=== PATIENT | female | born 1955 | race Caucasian/White ===

== ENCOUNTER 2019-08-29 08:12 | Emergency (ER) | payer BC, SELFPAY ==
--- NOTE | 2019-08-29 08:13 | ED.GENADUL_ITS ---
Discharge Plan Disposition Patient Disposition: HOME Condition: Good Discharge Details Chief Complaint: Allergic Clinical Impression: Allergic reaction Primary Care Provider: Dee Thacker ED Provider: Lou Cueto Home Meds and New Rx's Prescriptions: New prednisone 50 mg tablet 50 mg PO DAILY 4 Days Qty: 4 RF: 0 Discharge Instructions Instructions: General Allergic Reaction (ED) Additional Instructions: Encourage water intake. You may continue with Benadryl to help with swelling with reaction. The localized swelling is likely secondary to you sleeping on t he left side after having her reaction yesterday. If symptoms do not begin to improve as discussed, please begin the prednisone ordered. Try to take this in the morning as it can disturb sleep. If you develop difficulty breathing, wheezing, shortness of breath, pain, fevers, spreading of the area affected or other new/worsening symptom please seek care urgently once again. Otherwise, please keep your upcoming appointment with your primary care. Referrals: Dee Thacker [Primary Care Provider] - Medical Decision Making Patient is a pleasant 64-year-old female presenting today with concern for allergic reaction. She reports that yesterday she had been out weed whacking. When she came inside she noted both of her cheeks to be flushed and slightly puffy. She reports that she then went to a graduation where she wore a mask t hat seemed to further irritate her skin. States she did take a Benadryl last night prior to bed. She reports this morning when she woke up she noted focal swelling on the left cheek. She does report that she sleeps on the left side. She denies any difficulty breathing, shortness of breath, wheezing. Denies any fevers or chills. No pain in the face. No discharge. No visual changes. On exam, patient appears nontoxic. Her eyes appear unaffected. She does have swelling under the left eye the area of the left cheek. This is slightly pink. It is not hot to the touch, nontender, no fluctuance, no discharge is noted. There is a bug bite it appears inferior to the aspect of swelling. Normal exam of the oropharynx and posterior oropharynx. No swelling of the neck, no lymphadenopathy. Lungs are clear, no wheezing or stridor. Cardiac exam is normal. No rashes noted. Patient discussed that this is consistent with an allergic reaction. Patient history, this is likely more disseminated across her face evaluate yesterday. However, after sleeping on the left side, it probably fell to the dependent position. Does not appear infectious although we did discuss the signs of infec tion in case this does change throughout time. We discussed risk and benefits of steroids. However, such a localized area and seem to be worse after sleeping on that side, we did discuss a watch and wait approach. She will be prescribed prednisone in the event that this does not improve. However, advised that Benadryl and cool compresses may be sufficient at this time. She was given strict return precautions, particularly for signs of infection as well as worsening reaction. She does have an appointment with her primary care doctor on Saturday for routine evaluation. All of her questions and concerns were addressed and she is in agreement this plan. HPI General Mode of arrival: ambulatory . Date/Time Provider Initiated Documentation: 08/29/19 08:13 . Limitations to Documentation: no limitations . Information obtained by: patient and RN notes reviewed . History of Present Illness 64 year old F presents to the emergency department with the chief complaint of left sided facial swelling, allergic reaction, described as moderate, Quality is described as other (full no pain), and is localized to the face. Patient reports no radiation. Patient started experiencing this day(s) (1) and it has been constant. Cold therapy improves symptom(s), Other factors that worsen symptoms (worse after sleeping, slept on affected side) . Patient notes denies chest pain, cough, fever/chills, loss of appetite, nausea/vomiting, shortness of breath and weakness. Patient did receive the following treatments prior to arrival, none Related Data Home Medications Medication Instructions Recorded Confirmed prednisone 50 mg PO DAILY 4 Days #4 tab 08/29/19 Previous Rx's Medication Instructions Recorded prednisone 50 mg PO DAILY 4 Days #4 tab 08/29/19 Allergies Allergy/AdvReac Type Severity Reaction Status Date / Time No Known Allergies Allergy Unverified 08/29/19 08:35 Review of Systems Constitutional Constitutional: Reports as per HPI, Denies chills, Denies fatigue, Denies fever(s) and Denies headache(s) Eyes Eyes: Reports as per HPI, Denies change in vision, Denies eye discharge, Denies irritation and Denies eye pain ENT Ears, Nose, Mouth, and Throat: Reports as per HPI, Denies change in voice, Denies otalgia, Denies facial pain, Denies headache(s), Denies lip swelling, Denies nasal congestion, Denies nasal discharge, Denies neck pain, Denies sore throat, Denies throat swelling, Denies tongue swelling and Reports other Cardiovascular Cardiovascular: Reports as per HPI, Denies chest pain, Denies dyspnea, Denies dyspnea on exertion and Denies orthopnea Respiratory Respiratory: Reports as per HPI, Denies cough, Denies dyspnea, Denies dyspnea on exertion, Denies stridor and Denies wheezing Gastrointestinal Gastrointestinal: Reports as per HPI, Denies abdominal pain, Denies change in bowel habits, Denies nausea and Denies vomiting Musculoskeletal Musculoskeletal: Denies neck pain Integumentary/Breasts Skin/Breast: Reports as per HPI and Denies rash Neurologic Neurologic: Reports as per HPI and Denies headache(s) Endocrine Endocrine: Denies fatigue Allergic/Immunologic Allergic/Immunologic: Denies lip swelling, Denies throat swelling, Denies tongue swelling and Denies wheezing PFSH Social History Smoking/Tobacco Use Status: Never Alcohol Intake: current Alcohol Intake frequency: a few times a week Drug use: Never Substance use type: does not use Do you feel safe at home: Yes Do you feel safe in your relationship?: Yes Exam Const General: cooperative, healthy appearing, comfortable, no acute distress, well developed and well groomed Nutritional Appearance: average body habitus and well nourished Orientation: alert and awake [facility] Head: normal to inspection, normocephalic and atraumatic Ears: hearing grossly normal bilaterally, external ears normal and TM's normal bilaterally General nose exam: external nose normal and nares normal Face and sinus: sinuses nontender, no crepitus and no ecchymosis Face images: 1. area of swelling. Slightly pink. Nontender. No fluctuance. Small bite noted inferior to this Mouth: oral mucosae normal, lip normal, tongue normal, oropharynx normal and moist mucous membranes Teeth and gingiva: dentition normal Throat: posterior oropharynx normal, tonsils normal and uvula midline Eyes General: appearance normal, both eyes and all related structures Neck Neck: normal visual inspection, full ROM, no lymphadenopathy and no meningeal signs Resp Effort & Inspection: normal respiratory effort, able to speak in complete sentences and no respiratory distress Auscultation: clear to auscultation bilaterally, no rales, no rhonchi and no wheezes Cardio Rate: regular rate Rhythm: regular rhythm Heart Sounds: S1 normal and S2 normal Skin General skin exam: other (swelling as above) Neuro General: patient alert and patient awake Cognition: normal cognition Speech: speech normal Gait: normal gait Psych Appearance: grossly normal and well kempt Mental Status: mental status grossly normal Speech and Movement: speech and movement normal
[2019-08-29 08:16] VITALS: BP 145/74; PULSE 92; TEMP 36.6; O2SAT 97
[2019-08-29] MEDS: diphenhydrAMINE 25 MG CAP 50 MG PO (08:39)
== END 2019-08-29 09:10 | disposition home or self-care (01) ==
LOC: ER 09:19
PROVIDERS: Emergency Provider Physician Assistant; PCP Family Medicine
DX: T78.40XA Allergy, unspecified, initial encounter (principal); R22.0 Localized swelling, mass and lump, head; Y93.H2 Activity, gardening and landscaping
CPT/HCPCS: 99283

== ENCOUNTER → 2023-01-23 19:24 | Outpatient (CLI) | payer MEDICARE, BC, SELFPAY ==
--- NOTE | 2023-01-23 19:30 | DI.RAD_ITS ---
Exam(s) XR CHEST 2V PA LATERAL EXAM: XR CHEST 2V PA LATERAL CLINICAL HISTORY: COUGH TECHNIQUE: 2D digital imaging was performed of the chest. Two images were obtained. PA and lateral views were obtained. COMPARISON: No exams were available for comparison FINDINGS: MEDIASTINUM: Normal. HEART: Normal. PULMONARY VASCULATURE: Normal. LUNGS: The lungs are hyperinflated with flattened diaphragms suggesting underlying COPD. No focal in filtrates are seen. PLEURAL SPACE: No pleural effusion or pneumothorax. BONE:Within normal limits for the patient's age. OTHER FINDINGS:Normal. IMPRESSION: No focal infiltrates. DATA REPOSITORY: RADIATION DOSE DELIVERED:
--- NOTE | 2023-01-23 20:06 | DI.VRAD_ITS ---
PROCEDURE INFORMATION: Exam: XR Chest Exam date and time: 01/23/2023 7:41 PM Age: 67 years old Clinical indication: Cough TECHNIQUE: Imaging protocol: Radiologic exam of the chest. Views: 2 views. COMPARISON: No relevant prior studies available. FINDINGS: Lungs: Lungs are hyperaerated. No consolidation. No vascular congestion. Pleural spaces: Unremarkable. No pleural effusion. No pneumothorax. Heart/Mediastinum: Unremarkable. No cardiomegaly. Bones/joints: Unremarkable. IMPRESSION: Chronic lung disease. No acute cardiopulmonary abnormality. Dictated and Authenticated by: Teodoro Del Real MD. Ordering:HERNESTO Live MD
== END ==
PROVIDERS: PCP Family Medicine; Visit Provider Physician Assistant Medical
DX: R05.8 Other specified cough (principal)
CPT/HCPCS: 71046

== ENCOUNTER 2023-01-27 08:33 | Emergency (ER) | payer MEDICARE, BC, SELFPAY ==
[2023-01-27 08:38] VITALS: BP 148/88; PULSE 99; RESP 18; TEMP 36.9; O2SAT 98
[2023-01-27 08:42] VITALS: RESP 18
--- NOTE | 2023-01-27 08:57 | ED.GENADUL_ITS ---
Discharge Plan Disposition Patient Disposition: Home Discharge Details Clinical Impression: Pneumonia Primary Care Provider: Dee Thacker ED Provider: Yasmani Wilkins Home Meds and New Rx's Prescriptions: New doxycycline hyclate 100 mg capsule 100 mg PO BID Qty: 10 0RF benzonatate 200 mg capsule 200 mg PO TID PRN (Reason: cough) Qty: 30 0RF Discharge Instructions Instructions: Pneumonia (ED) Additional Instructions: It is very important that you get plenty of rest and stay well-hydrated during illness. Please take the antibiotics as prescribed and if not improving in the next 72 hours please follow-up with your primary care provider for reassessment or return to the emergency department for any new or significant worsening of symptoms. Referrals: Dee Thacker [Primary Care Provider] - Discharge Data Discharge Date/Time-TO BE ENTERED AT DEPARTURE: 01/27/23 09:09 Medical Decision Making Patient presenting to the emergency department for chief complaint of worsening cough. Patient reports that she has had cold-like symptoms for about 3 weeks and was seen at the urgent care on Saturday and they did not see anything on chest x-ray and placed her on steroids. She has been taking the steroids since then but has only continued to feel worse and has had no improvement. She denies any night sweats fever chills, difficulty breathing but does state some productive cough in the mornings. Physical exam does show some wheezing in the right middle lobe and crackles in the right lower lobe. Patient's vital signs are otherwise stable, no tachycardia noted, no tachypnea, patient afebrile and is oxygenating well. I do feel there is high likelihood that patient has pneumonia given focal lung findings. Given that she is recently had chest x-ray and stable vital signs I do not feel that any further work-up is needed and will start patient on antibiotics right away. Patient encouraged to monitor symptoms and return immediately for any new or significant worsening otherwise to follow- up with primary care provider if not improving. After discussion of diagnosis and plan of care patient has no further needs, questions, or concerns and states clear understanding to return to the emergency department for any worsening symptoms. This documentation was generated using [employer] system, please disregard any oddities of phrase or misspellings. HPI General Mode of arrival: ambulatory . Date/Time Provider Initiated Documentation: 01/27/23 08:49 . Limitations to Documentation: no limitations . Information obtained by: patient and RN notes reviewed . History of Present Illness 67 year old F presents to the emergency department with the chief complaint of Cough, wheezing, congestion, shortness of breath, described as moderate, Patient started experiencing this week(s) (3) and it has been constant. No relieving factors improve symptom(s), No exacerbating factors reported . Patient did receive the following treatments prior to arrival, other ([id number] meds, steroids) Related Data Home Medications Medication Instructions Recorded Confirmed benzonatate 200 mg capsule 200 mg PO TID PRN cough #30 caps 01/27/23 doxycycline hyclate 100 mg capsule 100 mg PO BID #10 caps 01/27/23 Previous Rx's Medication Instructions Recorded benzonatate 200 mg capsule 200 mg PO TID PRN cough #30 caps 01/27/23 doxycycline hyclate 100 mg capsule 100 mg PO BID #10 caps 01/27/23 Allergies Allergy/AdvReac Type Severity Reaction Status Date / Time No Known Allergies Allergy Unverified 08/29/19 08:35 General Stated Complaint: SOB DENISE: 3 Review of Systems Constitutional Constitutional: Denies chills, Reports fatigue, Denies fever(s), Denies headache(s), Reports malaise and Denies night sweats ENT Ears, Nose, Mouth, and Throat: Denies headache(s) Cardiovascular Cardiovascular: Denies chest pain and Denies dyspnea Respiratory Respiratory: Reports chest congestion, Reports cough, Reports excessive phlegm production, Reports pain with cough, Denies dyspnea and Reports wheezing Integumentary/Breasts Skin/Breast: Denies rash Neurologic Neurologic: Denies headache(s) Endocrine Endocrine: Reports fatigue Allergic/Immunologic Allergic/Immunologic: Reports wheezing PFSH All Active Problems (Updated 01/27/23 @ 09:02 by Yasmani Wilkins NP) Pneumonia (Acute) Social History Smoking/Tobacco Use Status: Never Smoking risk assessment performed?: Yes Alcohol Intake: current Alcohol Intake frequency: a few times a week Drug use: Never Substance use type: does not use Housing: house Do you feel safe at home: Yes Do you feel safe in your relationship?: Yes Exam Const General: cooperative, comfortable and no acute distress Orientation: alert and awake [facility] Head: normal to inspection, normocephalic and atraumatic Ears: hearing grossly normal bilaterally and TM's normal bilaterally General nose exam: external nose normal Face and sinus: no erythema Mouth: oral mucosae normal, no drooling, no muffled voice and no trismus Throat: posterior oropharynx normal Neck Neck: normal visual inspection, full ROM, no meningeal signs, trachea midline and supple Resp Effort & Inspection: normal respiratory effort, able to speak in complete sentences and cough Quality of cough: dry Auscultation: crackles on the right and wheezes right upper Cardio Rate: regular rate Rhythm: regular rhythm Heart Sounds: S1 normal, S2 normal, normal S1 and S2, no click, no gallops, no murmurs and no rubs Skin General skin exam: no rashes or lesions noted and dry skin (warm) Neuro General: patient alert, patient awake, patient oriented x3, gait normal and moves all extremities Cognition: normal cognition Speech: speech normal Course Vital Signs Vital signs: Vital Signs Temperature 36.9 C 01/27/23 08:38 Pulse 99 H 01/27/23 08:38 Respiratory Rate 18 01/27/23 08:38 Blood Pressure 148/88 H 01/27/23 08:38 Pulse Oximetry 98 01/27/23 08:38 Temperature 36.9 C 01/27/23 08:38 Temperature Source Temporal Artery Scan 01/27/23 08:38 Pulse 99 H 01/27/23 08:38 Respiratory Rate 18 01/27/23 08:42 Respiratory Effort Short of Breath 01/27/23 08:42 Respiratory Depth Normal 01/27/23 08:42 Respiratory Pattern Normal 01/27/23 08:42 Blood Pressure 148/88 H 01/27/23 08:38 Pulse Oximetry 98 01/27/23 08:38 Oxygen Delivery Method Room Air 01/27/23 08:38 Oxygen Flow Rate 0 01/27/23 08:38 PAWSS Have you Been Recently Intoxicated or Drunk Within the Last 30 days?: No Have you Ever Experienced Previous Episodes of Alcohol Withdrawal?: No Have you ever Experienced Withdrawal Seizures?: No Have you ever Experienced Delirium Tremens(DT)s?: No Have you ever undergone Alcohol Rehabilitation Treatment (i.e, inpt ot outpatient treatment programs)?: No Have you ever Experienced Blackouts?: No Have you ever Combined Alcohol with other Downers within the last 90 days?: No Have you ever Combined Alcohol with any other Substance of Abuse during the last 90 days?: No Positive Blood Alcohol level on Presentation? [PCS.BAL]: No Evidence of Increased Autonomic Activity (i.e. HR>120, tremor, sweating, agitation, nausea)?: No Result: 0
[2023-01-27] MEDS: Doxycycline Hyclate 100 MG CAP PO (09:04)
[2023-01-27] MEDS: Benzonatate 100 MG CAP PO (09:04)
== END 2023-01-27 09:09 | disposition home or self-care (01) ==
PROVIDERS: Emergency Provider Nurse Practitioner Family; PCP Family Medicine
DX: J18.9 Pneumonia, unspecified organism (principal)
CPT/HCPCS: 99283